=== PATIENT | male | born 1975 | race Caucasian/White ===

== ENCOUNTER → 2018-08-23 | Outpatient (CLI) | payer OTHER ==
[~2018-08-23] MED LIST: ASPI-COR81 M1 PO; CENTRUM1 TAB PO; CLARITIN10 MG PO; FENOFIBRATE134 MG PO; FLEXERIL10 MG PO; MOTRIN600 MG PO; NAPROSYN500 MG PO; PRAVACHOL40 MG PO; VICODIN 5/500 505 MG PO; Vicodin 5/500 505 MG PO; XANAX1 MG PO
[2018-08-23 14:37] LABS: MEAN CELL VOLUME 96.4 fl (80.0-94.0); MEAN CORPUSCULAR HGB 32.1 pg (27.0-31.0); MEAN CORPUSCULAR HGB CONC 33.3 g/dl (33.0-37.0); MEAN PLATELET VOLUME 10.8 fl (9.6-12.3); RED BLOOD COUNT 4.67 10*6/uL (4.50-5.90); RED CELL DISTRI WIDTH 11.9 % (0-14.5); WHITE BLOOD COUNT 8.6 10*3/uL (4.8-10.8)
[2018-08-23 15:08] LABS: ALBUMIN 4.1 gm/dl (3.1-4.5); BUN 14 mg/dl (7-24); CHLORIDE 109 mmol/L (98-107); CREATININE 1.02 mg/dL (0.70-1.30); POTASSIUM 4.3 mmol/L (3.5-5.1); SGOT/AST 16 IU/L (3-35); SGPT/ALT 25 U/L (12-78); SODIUM 144 mmol/L (136-145)
[2018-08-23 15:09] LABS: ALKALINE PHOSPHATASE 71 U/L (45-117); TOTAL PROTEIN 7.4 gm/dL (6.4-8.2)
== END | disposition home or self-care (01) ==
LOC: LAB 13:55
PROVIDERS: Family Medicine
DX: Z01.818 Encounter for other preprocedural examination (principal); R05 Cough; F17.200 Nicotine dependence, unspecified, uncomplicated; R51 Headache; S02.92XA Unspecified fracture of facial bones, initial encounter for closed fracture; X58.XXXA Exposure to other specified factors, initial encounter; Y93.89 Activity, other specified; Y92.89 Other specified places as the place of occurrence of the external cause; Y99.8 Other external cause status

== ENCOUNTER 2019-04-19 16:22 | Inpatient (IN) | payer OTHER ==
[~2019-04-19] VITALS: Ht 177.8 cm; Wt 98.1 kg
[2019-04-19 16:30] VITALS: BP 127/79
[2019-04-19 16:47] LABS: BASO % 0.4 % (0.0-1.0); EOS # 0.1 10*3/uL (0.0-0.4); EOS % 1.5 % (1.0-4.0); HEMATOCRIT 41.9 % (42.0-52.0); HEMOGLOBIN 14.5 g/dl (14.0-18.0); LYMPH # 2.9 10*3/uL (1.3-4.4); MEAN CELL VOLUME 93.9 fl (80.0-94.0); MEAN CORPUSCULAR HGB 32.5 pg (27.0-31.0); MEAN CORPUSCULAR HGB CONC 34.6 g/dl (33.0-37.0); MEAN PLATELET VOLUME 10.4 fl (9.6-12.3); MONO # 0.7 10*3/uL (0.1-1.0); MONO % 7.2 % (3.0-9.0); NEUT # 5.6 10*3/uL (2.3-7.9); NEUT % 59.6 % (47.0-73.0); PLATELET COUNT AUTOMATED 261 10*3/uL (130-400); RED BLOOD COUNT 4.46 10*6/uL (4.50-5.90); RED CELL DISTRI WIDTH 11.7 % (0-14.5); WHITE BLOOD COUNT 9.4 10*3/uL (4.8-10.8)
[2019-04-19 17:00] LABS: ACT PARTIAL THROMBO TIME 27.7 SECONDS (20.0-32.1); INTERNATIONAL NORM RATIO 0.9 (2.0-3.5)
[2019-04-19 17:30] LABS: ALBUMIN 3.9 gm/dl (3.1-4.5); ALKALINE PHOSPHATASE 85 U/L (45-117); BUN 13 mg/dl (7-24); CHLORIDE 108 mmol/L (98-107); CREATININE 0.92 mg/dL (0.70-1.30); POTASSIUM 3.8 mmol/L (3.5-5.1); SGOT/AST 21 IU/L (3-35); SGPT/ALT 30 U/L (12-78); SODIUM 139 mmol/L (136-145); TOTAL PROTEIN 7.3 gm/dL (6.4-8.2)
[2019-04-19 17:35] LABS: TROPONIN I < 0.015 ng/ml (<0.045)
[2019-04-19 18:02] VITALS: BP 108/70
[2019-04-19 20:00] VITALS: BP 125/73
--- NOTE | 2019-04-19 21:20 | NUR ---
A 43, admitted to , under the services of SHAZIA Guerrero MD with a diagnosis of CHEST PAIN WITH LOW RISK FOR CARDIAC ETIOLOGY. Chief complaint is CHEST PAIN. Patient arrived via wheel chair from ER. Monitor applied. Initial assessment completed. Vital signs taken and recorded. SHAZIA GUERRERO MD notified of admission to the unit. Orders received. See assessment for past medical history, medications and allergies. Patient and/or family oriented to unit. [facility] visitation policy reviewed. Clothing/patient valuable form completed. YOEL TUTTLE
--- NOTE | 2019-04-19 21:40 | NUR ---
UPDATED MED LIST WITH PT AND HIS . PT REFUSES TO HAVE HIS BED ALARM ON EVEN THOUGH WE ADVISED IT TO BE ON. PT IS MADE AWARE OF HOW TO USE THE CALL LIGHT AND STATES HE DOES NOT NEED ANTHING AT THIS TIME.
[2019-04-19] MEDS ORDERED: SINGULAIR10 M1 PO (21:47)
[2019-04-19] MEDS ORDERED: PERCOCET 5-3251 EACH PO (21:48)
[2019-04-19] MEDS ORDERED: GABAPENTIN100 M2 PO (21:48)
[2019-04-19] MEDS ORDERED: OXCARBAZEPINE300 M1 PO (21:50)
[2019-04-19] MEDS ORDERED: PROZAC40 M1 PO (21:51)
--- NOTE | 2019-04-19 22:12 | NUR ---
CALLED DR BAXTER FOR NEW ADMISSION, WILL PUT IN ORDERS PER REQUEST
--- NOTE | 2019-04-19 22:30 | NUR ---
ANSWERING SERVICE CALLED FOR DR YATES CONSULT
--- NOTE | 2019-04-19 23:28 | NUR ---
PT MADE AWARE OF PLANS FOR TOMORROW AND TO BE NPO AFTER MIDNIGHT, PT AGREES TO THIS AND HAS NO QUESTIONS AT THIS TIME
[2019-04-20] VITALS: BP 101/47
--- NOTE | 2019-04-20 01:20 | NUR ---
Shift chart check completed.
[2019-04-20 07:16] LABS: CHOLESTEROL 204 mg/dL (<200); HDL CHOLESTEROL 21 mg/dl (40-60); TRIGLYCERIDES 676 mg/dl (<150)
[2019-04-20 08:00] VITALS: BP 108/64
--- NOTE | 2019-04-20 08:15 | NUR ---
Facility Sales And Admin in to talk to patient. Patient states lives at home with his and daughter. There are 12 steps in the home. Physician: Dr. Reed Goode and Dr. Karthik Koch [facility]: [facility] Home health services: none Patient's level of ADLs: INDEPENDENT Patient has working utilities: YES DME: none Follow-up physician's appointment after d/c: he prefers to make his own follow up appt after discharge Does patient want to access PORTAL?: no Discharge plan discussed with patient. He lives at home with his and daughter. He is independent in his ADLs and ambulation. Discussed home health care services and he denies any home needs at this time. He states his will provide transportation on discharge. TRACY MARRERO
--- NOTE | 2019-04-20 10:45 | NUR ---
INFORMED CONSENT OBTAINED FOR LEXISCAN NUCLEAR STRESS TEST WITH DR. YATES. RESTING EKG NSR WITH A RESTING HR OF 79 WITH BP OF 100/60. LUNGS CLEAR WITH SPO2 OF 99% ON ROOM AIR. PT COMPLETED A 1:00 LEXISCAN PROTOCOL RECEIVING LEXISCAN 0.4 MG IV OVER 10 SECONDS. HAD NO CHEST PAIN OR ANY EKG ST CHANGES. DID C/O NAUSEA THEN HAD A SMALL EMESIS THAT WAS RELIEVED END OF RECOVERY. HAD A PEAK HR OF 132 WITH BP OF 90/52. LAST RECOVERY HR OF 112 WITH BP OF 108/60. AWAITING SCANNING IN STABLE CONDITION.
[2019-04-20 16:00] VITALS: BP 115/69
--- NOTE | 2019-04-20 16:14 | NUR ---
[facility] Discharge instructions reviewed with patient/family. Patient receptive and verbalizes understanding. Follow-up care arranged. Written instructions given to patient/family. GUSTABO WOODWARD
== END 2019-04-20 16:14 | disposition home or self-care (01) | DRG 203 ==
LOC: ED 16:22 → EDHOLD 17:46 → 4E 17:46
PROVIDERS: Emergency Medicine; ADMIT Internal Medicine
PROC: 4A02XM4 Measurement of Cardiac Total Activity, External Approach (ICD-10-PCS; principal; 2019-04-20)
PROC: 3E073KZ Introduction of Other Diagnostic Substance into Coronary Artery, Percutaneous Approach (ICD-10-PCS; 2019-04-20)
DX: R07.89 Other chest pain (principal); E78.1 Pure hyperglyceridemia; G40.909 Epilepsy, unspecified, not intractable, without status epilepticus; G89.29 Other chronic pain; M54.9 Dorsalgia, unspecified; F41.1 Generalized anxiety disorder; F17.210 Nicotine dependence, cigarettes, uncomplicated; E66.8 Other obesity; Z82.49 Family history of ischemic heart disease and other diseases of the circulatory system; Z83.3 Family history of diabetes mellitus; Z80.8 Family history of malignant neoplasm of other organs or systems; Z71.6 Tobacco abuse counseling; Z79.899 Other long term (current) drug therapy; Z79.82 Long term (current) use of aspirin; Z68.31 Body mass index [BMI] 31.0-31.9, adult

== ENCOUNTER → 2020-06-24 | Outpatient (CLI) | payer MEDICARE, MEDICAID ==
[~2020-06-24] MED LIST changes: +GABAPENTIN100 M2 PO; +OXCARBAZEPINE300 M1 PO; +PERCOCET 5-3251 EACH PO; +PROZAC40 M1 PO; +SINGULAIR10 M1 PO
[2020-06-24 08:14] LABS: HEMATOCRIT 43.3 % (42.0-52.0); MEAN CELL VOLUME 93.3 fl (80.0-94.0); MEAN CORPUSCULAR HGB 31.5 pg (27.0-31.0); MEAN CORPUSCULAR HGB CONC 33.7 g/dl (33.0-37.0); MEAN PLATELET VOLUME 10.7 fl (9.6-12.3); RED BLOOD COUNT 4.64 10*6/uL (4.50-5.90); RED CELL DISTRI WIDTH 11.5 % (0-14.5)
[2020-06-24 08:40] LABS: ALBUMIN 4.1 gm/dl (3.1-4.5); BUN 10 mg/dl (7-24); CHLORIDE 106 mmol/L (98-107); CHOLESTEROL 208 mg/dL (<200); CREATININE 0.96 mg/dL (0.70-1.30); SGOT/AST 15 IU/L (3-35); SGPT/ALT 28 U/L (12-78); SODIUM 136 mmol/L (136-145); TOTAL PROTEIN 7.4 gm/dL (6.4-8.2)
[2020-06-24 08:42] LABS: ALKALINE PHOSPHATASE 81 U/L (45-117); HDL CHOLESTEROL 21 mg/dl (40-60)
[2020-06-24 08:43] LABS: TRIGLYCERIDES 577 mg/dl (<150)
== END | disposition home or self-care (01) ==
LOC: LAB 07:28
PROVIDERS: ATTEND Family Medicine
DX: E78.00 Pure hypercholesterolemia, unspecified (principal); R53.83 Other fatigue; E16.2 Hypoglycemia, unspecified

== ENCOUNTER → 2020-12-09 | Outpatient (CLI) | payer MEDICARE, MEDICAID ==
[2020-12-09 08:24] LABS: HEMATOCRIT 43.3 % (42.0-52.0); MEAN CELL VOLUME 93.5 fl (80.0-94.0); MEAN CORPUSCULAR HGB CONC 34.2 g/dl (33.0-37.0); MEAN PLATELET VOLUME 10.5 fl (9.6-12.3); RED BLOOD COUNT 4.63 10*6/uL (4.50-5.90); RED CELL DISTRI WIDTH 11.6 % (0-14.5); WHITE BLOOD COUNT 8.1 10*3/uL (4.8-10.8)
[2020-12-09 08:42] LABS: ALBUMIN 3.9 gm/dl (3.1-4.5); ALKALINE PHOSPHATASE 80 U/L (45-117); BUN 14 mg/dl (7-24); CHLORIDE 108 mmol/L (98-107); CHOLESTEROL 186 mg/dL (<200); CPK 59 U/L (39-308); CREATININE 0.89 mg/dL (0.70-1.30); POTASSIUM 4.3 mmol/L (3.5-5.1); SGOT/AST 15 IU/L (3-35); SGPT/ALT 30 U/L (12-78); SODIUM 138 mmol/L (136-145); TOTAL PROTEIN 7.5 gm/dL (6.4-8.2); TRIGLYCERIDES 513 mg/dl (<150)
== END | disposition home or self-care (01) ==
LOC: LAB 08:02
PROVIDERS: ATTEND Family Medicine
DX: E78.00 Pure hypercholesterolemia, unspecified (principal); I10 Essential (primary) hypertension; R51.9 Headache, unspecified; E11.9 Type 2 diabetes mellitus without complications

== ENCOUNTER → 2021-08-07 | Outpatient (CLI) | payer OTHER, MEDICAID ==
[2021-08-07 10:31] LABS: BASO % 0.3 % (0.0-1.0); EOS # 0.2 10*3/uL (0.0-0.4); EOS % 1.8 % (1.0-4.0); HEMATOCRIT 44.4 % (42.0-52.0); LYMPH % 34.1 % (27.0-41.0); MEAN CELL VOLUME 91.2 fl (80.0-94.0); MEAN CORPUSCULAR HGB CONC 35.1 g/dl (33.0-37.0); MEAN PLATELET VOLUME 10.6 fl (9.6-12.3); MONO # 0.6 10*3/uL (0.1-1.0); MONO % 6.9 % (3.0-9.0); NEUT % 56.4 % (47.0-73.0); PLATELET COUNT AUTOMATED 285 10*3/uL (130-400); RED BLOOD COUNT 4.87 10*6/uL (4.50-5.90); RED CELL DISTRI WIDTH 11.5 % (0-14.5); WHITE BLOOD COUNT 8.8 10*3/uL (4.8-10.8)
[2021-08-07 10:49] LABS: ALKALINE PHOSPHATASE 91 U/L (45-117); BUN 10 mg/dl (7-24); CHLORIDE 106 mmol/L (98-107); CREATININE 0.98 mg/dL (0.70-1.30); POTASSIUM 4.6 mmol/L (3.5-5.1); SGOT/AST 24 IU/L (3-35); SGPT/ALT 42 U/L (12-78); SODIUM 135 mmol/L (136-145); TOTAL PROTEIN 7.8 gm/dL (6.4-8.2)
== END | disposition home or self-care (01) ==
LOC: LAB 10:11
PROVIDERS: ATTEND Psychiatry & Neurology Neurology
DX: Z51.81 Encounter for therapeutic drug level monitoring (principal); R29.818 Other symptoms and signs involving the nervous system; F44.7 Conversion disorder with mixed symptom presentation

== ENCOUNTER → 2024-07-18 | Outpatient (CLI) | payer MEDICARE ==
[2024-07-18 14:50] LABS: HEMATOCRIT 49.8 % (42.0-52.0); MEAN CORPUSCULAR HGB 32.3 pg (27.0-31.0); MEAN CORPUSCULAR HGB CONC 33.9 g/dl (33.0-37.0); MEAN PLATELET VOLUME 11.1 fl (9.6-12.3); RED BLOOD COUNT 5.24 10*6/uL (4.50-5.90); RED CELL DISTRI WIDTH 11.9 % (0-14.5); WHITE BLOOD COUNT 8.3 10*3/uL (4.8-10.8)
[2024-07-18 15:15] LABS: ALKALINE PHOSPHATASE 77 U/L (46-116); BUN 10 mg/dl (9-23); CHLORIDE 109 mmol/L (98-107); CHOLESTEROL 232 mg/dL (<200); CPK 62 U/L (34-171); POTASSIUM 4.6 mmol/L (3.4-5.1); SGPT/ALT 24 U/L (5-49); TOTAL PROTEIN 7.4 gm/dL (6.0-8.0); TRIGLYCERIDES 565 mg/dl (<150)
[2024-07-18 15:18] LABS: VITAMIN D, 25-HYDROXY 20.5 ng/mL (30-100)
== END | disposition home or self-care (01) ==
LOC: LAB 14:28
PROVIDERS: ATTEND Family Medicine
DX: E78.00 Pure hypercholesterolemia, unspecified (principal); E74.9 Disorder of carbohydrate metabolism, unspecified; R53.83 Other fatigue; E55.9 Vitamin D deficiency, unspecified; G62.9 Polyneuropathy, unspecified; R10.9 Unspecified abdominal pain; Z79.899 Other long term (current) drug therapy